=== PATIENT | female | born 1945 | race Caucasian/White ===

== ENCOUNTER 2020-10-07 14:29 | Emergency (ER) | payer OTHER ==
[~2020-10-07] VITALS: Ht 149.9 cm; Wt 70.2 kg
[2020-10-07 14:44] VITALS: BP 141/84
== END 2020-10-07 20:06 | disposition left against medical advice (07) ==
LOC: ER 14:30
DX: M25.519 Pain in unspecified shoulder (principal); Z53.21 Procedure and treatment not carried out due to patient leaving prior to being seen by health care provider

== ENCOUNTER 2020-10-24 12:15 | Inpatient (IN) | payer MEDICARE, BC ==
[2020-10-18 12:39] LABS: BASOPHILS # (AUTO) 0.1 X10'3 (0-0.2); BASOPHILS % (AUTO) 0.9 % (0-1); EOSINOPHILS # (AUTO) 0.4 X10'3 (0-0.9); EOSINOPHILS % (AUTO) 4.6 % (0-6); LYMPHOCYTES # (AUTO) 1.3 X10'3 (1.1-4.8); LYMPHOCYTES % (AUTO) 16.9 % (21-51); MEAN CORPUSCULAR HEMOGLOBIN 31.2 PG (27.0-31.0); MEAN CORPUSCULAR HGB CONC 32.9 g/dL (33.0-36.5); MEAN CORPUSCULAR VOLUME 94.7 FL (78-98); MEAN PLATELET VOLUME 9.1 FL (7.4-10.4); MONOCYTES # (AUTO) 0.7 X10'3 (0-0.9); MONOCYTES % (AUTO) 9.2 % (2-12); NEUTROPHILS # (AUTO) 5.4 X10'3 (1.8-7.7); NEUTROPHILS % (AUTO) 68.4 % (42-75); PRE OP HEMATOCRIT 37.1 % (35.0-45.0); PRE OP HEMOGLOBIN 12.2 g/dL (12.0-16.0); PRE OP PLATELET COUNT 411 X10'3 (140-440); RED BLOOD COUNT 3.92 X10'6 (4.20-5.60); RED CELL DISTRIBUTION WIDTH 18.7 % (11.5-14.5)
[2020-10-18 12:58] LABS: PRE OP INR 1.1 INR; PRE OP PROTIME 11.1 SECONDS (9.0-12.0)
[2020-10-18 13:06] LABS: HEMOGLOBIN A1C 6.2 % (4.5-6.2)
[2020-10-18 13:14] LABS: ALBUMIN 3.5 G/DL (3.4-5.0); ALBUMIN/GLOBULIN RATIO 0.9 (1.1-1.5); ALKALINE PHOSPHATASE 129 IU/L (46-116); BLOOD UREA NITROGEN 19 MG/DL (7-18); BUN/CREATININE RATIO 22.9 (6.6-38.0); CALCIUM 9.4 MG/DL (8.5-10.1); CHLORIDE 105 MMOL/L (99-107); CREATININE 0.83 MG/DL (0.40-0.90); PRE OP ALT 25 U/L (30-65); PRE OP ANION GAP 9 (8-16); PRE OP AST 18 U/L (10-37); PRE OP BILIRUB, TOTAL 0.6 MG/DL (0.0-1.0); PRE OP GLUCOSE 130 MG/DL (70-104); PRE OP POTASSIUM 3.6 MMOL/L (3.4-5.1); PRE OP SODIUM 142 MMOL/L (135-145); TOTAL CARBON DIOXIDE 28.2 MMOL/L (24-32); TOTAL PROTEIN 7.5 G/DL (6.4-8.2); eGFR 67 ML/MIN
[2020-10-18 13:25] LABS: ANISOCYTOSIS 2+; PLATELET ESTIMATE NORMAL
[~2020-10-24] VITALS: Ht 149.9 cm; Wt 67.9 kg
[~2020-10-24 12:15] MED LIST: ATOR40TA PO; OMEP40CA21 PO; PIOG15TA8 PO; SERT25TA PO; SYN0.088T PO
[2020-10-30] VITALS (18 sets, daily range): BP systolic 105–144; BP diastolic 63–72
[2020-10-30] MEDS ORDERED: cefazolin/dext.iso 2gm/100ml IV ONE (08:30)
[2020-10-30] MEDS ORDERED: VANCOMYCIN INJ 1000 MG in NORMAL SALINE 250ml IV.SOLN IV ONE (08:30)
[2020-10-30] MEDS ORDERED: tranexamic acid 650mg tablet PO ONE (08:35)
[2020-10-30] MEDS ORDERED: famotidine 20mg tablet PO ONE (09:05)
[2020-10-30] MEDS: ringers solution, lacted 1,000 ML IV SCH (09:31)
[2020-10-30] MEDS ORDERED: ondansetron/PF 4mg/2ml inj ONE (10:26)
[2020-10-30] MEDS ORDERED: sevoflurane 250ml liquid IH ONE (10:26)
[2020-10-30] MEDS ORDERED: dexamethasone sod phosphate 10mg/ml inj ONE (10:26)
[2020-10-30] MEDS ORDERED: fentaNYL/PF 50MCG/1 ML 2ML syringe ONE (10:32)
[2020-10-30] MEDS ORDERED: midazolam 1 mg/ML 2ml injection ONE (10:32)
[2020-10-30] MEDS ORDERED: propofol inj 20 ML IV ONE (10:33)
[2020-10-30] MEDS ORDERED: ROPIVAcaine 0.5% (5mg/ml) 30ml vial ONE ×2 (10:34→10:42)
[2020-10-30] MEDS ORDERED: LIDOcaine 2% (20mg/ml) 5ml vial ONE (10:34)
[2020-10-30] MEDS ORDERED: ketorolac trometh. 30mg/ml inj. ONE (10:42)
[2020-10-30] MEDS ORDERED: albumin (Human) 5% 250ml 250 ML IV ONE (11:39)
[2020-10-30] MEDS ORDERED: ringers solution, lacted 1,000 ML IV SCH (11:50)
[2020-10-30] MEDS ORDERED: ROPIVAcaine 0.2% (10 MG/5 ML) BOLUS INJECTION INTERSCALE PRN (11:50)
[2020-10-30] MEDS ORDERED: meperidine/PF 25mg/ml syringe IV PRN ×3 (11:50)
[2020-10-30] MEDS ORDERED: morphine 2 MG/ML inj. syringe IV PRN (11:50)
[2020-10-30] MEDS ORDERED: morphine 4 MG/ML inj SYRINge IV PRN (11:50)
[2020-10-30] MEDS ORDERED: ondansetron/PF 4mg/2ml inj IV PRN ×2 (11:50→13:00)
[2020-10-30] MEDS ORDERED: proCHLORperazine 10 MG/2 ml inj IV PRN (11:50)
[2020-10-30] MEDS ORDERED: ROPIVAcaine 0.2%/PF PUMP/bolus 545 ML INTERSCALE SCH (11:50)
[2020-10-30 11:57] LABS: CLARITY,URINE SLIGHTLY CLOUDY (Clear); COLOR,URINE YELLOW (Yellow); UA COLLECTION TYPE NON-SPECIFIED
[2020-10-30 11:58] LABS: GLUCOSE, URINE NEGATIVE (Neg); KETONES,URINE NEGATIVE (Neg); LEUKOCYTE ESTERASE ,URINE TRACE (Neg); NITRITES, URINE NEGATIVE (Neg); OCCULT BLOOD,URINE NEGATIVE (Neg); PROTEIN,URINE TRACE mg/dl (Neg); UROBILINOGEN,URINE 0.2 E.U/dL (0.2-1.0)
[2020-10-30 12:03] LABS: MUCUS STRANDS MANY /LPF (Neg); SQUAMOUS EPITHELIAL CELL,UR FEW /LPF (FEW)
[2020-10-30 12:04] LABS: TRANSITIONAL EPI CELLS,URINE FEW /HPF
[2020-10-30 12:05] LABS: BACTERIA,URINE NONE SEEN /HPF (Neg); CAL OXALATE CRYSTALS FEW /HPF (NEGATIVE); WBC,URINE 0-4 /HPF (0-4)
[2020-10-30] MEDS ORDERED: ePHEDrine 50MG/ML INJ. ONE (12:53)
--- NOTE | 2020-10-30 12:55 | NUR ---
Received from OR via , accompanied by Anesthesiologist DR SULTANA and report given by Anesthesiolgist.AWAKENS TO VOICE. VITALS STABLE. DRESSING DI. SHERRIE PAIN. LUE IN A SIMPLE SLING.
[2020-10-30] MEDS ORDERED: diphenhydrAMINE 25mg capsule PO PRN ×2 (13:00)
[2020-10-30] MEDS ORDERED: HYDROmorphone inj. 0.5 MG/0.5 ML DISP.SYRIN IV PRN (13:00)
[2020-10-30] MEDS ORDERED: oxyCODONE IR 5mg (immed. release) tablet PO PRN ×2 (13:00)
[2020-10-30] MEDS ORDERED: HYDROmorphone 1 mg/ml syringe IV PRN (13:00)
[2020-10-30] MEDS ORDERED: magnesium hydroxide 30ml (MOM) UD suspension PO PRN (13:00)
[2020-10-30] MEDS ORDERED: bisacodyl 10mg suppository rectal RC PRN (13:00)
[2020-10-30] MEDS ORDERED: acetaminophen 325mg tablet PO PRN (13:00)
--- NOTE | 2020-10-30 13:50 | NUR ---
Patient in room RITO 358A. I have received report from EVAN WADE FROM [facility] and had the opportunity to ask questions and assume patient care.
--- NOTE | 2020-10-30 14:05 | NUR ---
Report called to receiving nurse. Transferred via [facility] . Special Issues communicated to receiving nurse. AWAKE AND ORIENTED. VITALS STABLE. DRESSING DI. SHERRIE PAIN. TO SURGICAL RM 358A AT THIS TIME.
[2020-10-30] MEDS: acetaminophen 325mg tablet PO SCH ×2 (14:39→20:32)
[2020-10-30] MEDS: potassium cl 20mEq in 1/2 NS 1,000 ML IV SCH ×2 (16:43→20:32)
[2020-10-30] MEDS: ceFAZolin/D5W- 1GM premix 50 ML IV SCH (16:44)
--- NOTE | 2020-10-30 18:45 | NUR ---
Problems reprioritized. Patient report given, questions answered & plan of care reviewed with EVAN DUFF.
[2020-10-30] MEDS ORDERED: vancomycin/NS 1 GM ADD-VANTAGE 250 ML IV SCH (20:00)
[2020-10-30] MEDS ORDERED: insulin Lispro (HumaLOG) vial - multi-dose SQ SCH (20:25)
[2020-10-30] MEDS ORDERED: dextrose ORAL solution 15 GM/59 ML bottle PO PRN ×2 (20:25)
[2020-10-30] MEDS ORDERED: MESSAGE TO PHARMACY PO ONE (20:25)
[2020-10-30] MEDS ORDERED: glucagon, human recombinant 1mg kit SUBCUT PRN (20:25)
[2020-10-30] MEDS ORDERED: dextrose 50%-water 50ml dispensing syringe IV PRN ×2 (20:25)
[2020-10-30] MEDS ORDERED: insulin glargine (Lantus) pen - multi-dose SQ SCH (21:00)
[2020-10-30] MEDS ORDERED: sennosides 8.6mg tablet PO SCH (21:00)
--- NOTE | 2020-10-30 22:39 | NUR ---
Had to get hypo/hyperglycemia orders from MD. Insulin was not avail from pharmacy until 2200. Skipped dinner coverage and covered nighttime.
[2020-10-31] VITALS: BP 110/64
[2020-10-31] MEDS: ceFAZolin/D5W- 1GM premix 50 ML IV SCH (01:01)
[2020-10-31] MEDS: acetaminophen 325mg tablet PO SCH ×2 (02:43→08:00)
[2020-10-31] MEDS: potassium cl 20mEq in 1/2 NS 1,000 ML IV SCH (02:54)
[2020-10-31 04:00] VITALS: BP 137/60
[2020-10-31] MEDS: ringers solution, lacted 1,000 ML IV SCH (05:25)
[2020-10-31 06:55] LABS: BASOPHILS # (AUTO) 0.1 X10'3 (0-0.2); BASOPHILS % (AUTO) 0.5 % (0-1); EOSINOPHILS # (AUTO) 0.1 X10'3 (0-0.9); EOSINOPHILS % (AUTO) 0.6 % (0-6); HEMATOCRIT 24.5 % (35.0-45.0); HEMOGLOBIN 8.2 g/dl (12.0-16.0); LYMPHOCYTES # (AUTO) 1.5 X10'3 (1.1-4.8); LYMPHOCYTES % (AUTO) 14.2 % (21-51); MEAN CORPUSCULAR HEMOGLOBIN 31.6 PG (27.0-31.0); MEAN CORPUSCULAR HGB CONC 33.5 g/dL (33.0-36.5); MEAN CORPUSCULAR VOLUME 94.2 FL (78-98); MEAN PLATELET VOLUME 9.9 FL (7.4-10.4); MONOCYTES # (AUTO) 1.1 X10'3 (0-0.9); MONOCYTES % (AUTO) 10.3 % (2-12); NEUTROPHILS # (AUTO) 7.8 X10'3 (1.8-7.7); NEUTROPHILS % (AUTO) 74.4 % (42-75); PLATELET COUNT 163 X10'3 (140-440); RED CELL DISTRIBUTION WIDTH 17.2 % (11.5-14.5); WHITE BLOOD COUNT 10.5 X10'3 (4.5-11.0)
[2020-10-31 07:00] VITALS: BP 96/43
[2020-10-31 07:06] LABS: ANION GAP 10 (8-16); CHLORIDE 108 MMOL/L (99-107); SODIUM 139 MMOL/L (135-145); TOTAL CARBON DIOXIDE 20.8 MMOL/L (24-32)
[2020-10-31] MEDS ORDERED: pioglitazone 15mg tablet PO SCH (08:00)
[2020-10-31] MEDS ORDERED: levoTHYROXINE 75mcg tablet PO SCH (08:00)
[2020-10-31] MEDS ORDERED: atorvastatin 20mg tablet PO SCH (08:00)
[2020-10-31] MEDS ORDERED: pantoprazole 40mg Tablet.DR PO SCH (08:00)
[2020-10-31] MEDS ORDERED: aspirin 325mg tablet PO SCH (08:30)
[2020-10-31] MEDS ORDERED: iohexol 300mg/ml 100ml inj. ONE ×2 (10:27→11:18)
[2020-11-01] MEDS ORDERED: acetaminophen 325mg tablet PO PRN (13:00)
== END 2020-10-31 12:20 | disposition home or self-care (01) | DRG 483 ==
LOC: UNDOADMIN 10-30 07:45 → PAS IN 10-30 07:45 → SUR 3N 10-30 14:00 → PAS IN 10-30 14:00
PROVIDERS: ADMIT Orthopaedic Surgery; ATTEND Orthopaedic Surgery
PROC: 0LS40ZZ Reposition Left Upper Arm Tendon, Open Approach (ICD-10-PCS; 2020-10-30)
PROC: 3E0T3BZ Introduction of Anesthetic Agent into Peripheral Nerves and Plexi, Percutaneous Approach (ICD-10-PCS; 2020-10-30)
PROC: 3E0T33Z Introduction of Anti-inflammatory into Peripheral Nerves and Plexi, Percutaneous Approach (ICD-10-PCS; 2020-10-30)
PROC: 0RRK00Z Replacement of Left Shoulder Joint with Reverse Ball and Socket Synthetic Substitute, Open Approach (ICD-10-PCS; principal; 2020-10-30 10:26)
PROC: BW251ZZ Computerized Tomography (CT Scan) of Chest, Abdomen and Pelvis using Low Osmolar Contrast (ICD-10-PCS; 2020-10-31)
DX: S42.292A Other displaced fracture of upper end of left humerus, initial encounter for closed fracture (principal); M75.22 Bicipital tendinitis, left shoulder
CPT/HCPCS: 36415; 71045; 71260; 74177; 80051; 80053; 81001; 82948; 83036; 84443; 85008; 85025; 85610; 85730; 86885; 86900; 86901; 87081; 93005; 97116; 97161; 97530; A4565; A4618; A7000; C1776; G0378; J0690; J1100; J1815; J1885; J2001; J2250; J2405; J2704; J2795; J3010; J3370; J3480; J7120; P9045; Q9967; U0003; U0005